=== PATIENT | female | born 1925 | race Caucasian/White ===

== ENCOUNTER 2016-12-14 00:39 | Emergency (ER) | payer MEDICARE, BC, OTHER ==
[~2016-12-14] VITALS: Ht 157.5 cm; Wt 54.0 kg
[~2016-12-14 00:39] MED LIST: AMLO10TA2 PO; ATOR1TAB19 PO; BENA20TA2 PO; CEPH2CAP PO; METF500T PO; MULTTAB4 PO; SPIRIVA INH; TORS20TA2 PO
[2016-12-14 02:31] LABS: BASO # 0.1 K/mm3 (0.0-0.2); BASO % 0.6 % (0.0-1.0); EOS # 0.2 K/mm3 (0.0-0.50); EOS % 1.9 % (0.0-3.0); LARGE UNSTAINED CELL # 0.1 K/mm3 (0.0-0.4); LYMPH # 1.2 K/mm3 (1.5-4.5); LYMPH % 10.6 % (24.0-44.0); MEAN CORPUSCULAR HEMOGLOBIN 31.2 pg (27.0-33.0); MEAN CORPUSCULAR HGB CONC 32.5 g/dl (32.0-36.5); MEAN CORPUSCULAR VOLUME 96.1 fl (80.0-96.0); MONO # 0.6 K/mm3 (0.0-0.8); MONO % 6.3 % (0.0-5.0); NEUTROPHILS # 8.1 K/mm3 (1.8-7.7); NEUTROPHILS % 79.7 % (36.0-66.0); PLATELET COUNT, AUTOMATED 177 k/mm3 (150-450); RED CELL DISTRIBUTION WIDTH 13.8 % (11.5-14.5); WHITE BLOOD COUNT 10.2 K/mm3 (4.0-10.0)
[2016-12-14 03:01] LABS: ABG BASE EXCESS -2.4 (-2.0-2.0); ABG HCO3 21.4 MEQ/L (22.0-26.0); ABG PARTIAL PRESSURE CO2 33.8 mmHg (35.0-45.0); ABG STANDARD HCO3 22.4 MEQ/L (22.0-26.0); ABG TOTAL CO2 22.4 MEQ/L (23.0-31.0); ABG pH (ARTERIAL) 7.419 UNITS (7.350-7.450)
[2016-12-14 03:04] LABS: CALCIUM LEVEL 8.4 MG/DL (8.8-10.2); CREATININE FOR GFR 1.45 MG/DL (0.55-1.02); GLOMERULAR FILTRATION RATE 36.3 (>32); POTASSIUM SERUM 3.9 MEQ/L (3.5-5.1)
[2016-12-14] MEDS ORDERED: HEPARIN DRIP 25,000 UNITS in APPROPRIATE DILUENT 1 EA IV SCH (03:29)
[2016-12-14] MEDS ORDERED: ASPIRIN 325 MG TAB PO ONE (03:30)
[2016-12-14] MEDS ORDERED: HEPARIN SOD (PORCINE) 5000 UNITS/ML VIAL IV ONE (03:30)
[2016-12-14 03:56] LABS: INR 1.1
[2016-12-14 05:00] VITALS: BP 122/57
--- NOTE | 2016-12-14 08:21 | REP ---
PA and lateral chest: Comparison is , 2012. Lung faria are clear. Cardiac size is mildly enlarged. The kyler, mediastinum, and bony thorax are unremarkable except osteoarthritis of the shoulders bilaterally. Prominent chest wall soft tissue superimposed lower lung zones. Impression: There are no acute cardiopulmonary findings Signed by Darrion Lin MD 12/14/2016 08:13 A
--- NOTE | 2016-12-14 16:06 | ECGEPIP ---
Stationary ECG Study [facility] - ED Test Date: 2016-12-14 Pat Name: MELISSA YODER Department: Room: - Gender: F Community Affairs Manager: rb : [id number] Requested By: ISMAEL GOMEZ Order Number: [id number] Reading MD: Zoran Baron Measurements Intervals [place] Rate: 107 P: 55 W[place]: 183 QRS: -47 QRSD: 97 T: 51 QT: 341 QTc: 456 Interpretive Statements SINUS TACHYCARDIA WITH FIRST DEGREE AV BLOCK POSSIBLE LEFT ATRIAL ENLARGEMENT PATTERN CONSISTENT WITH PULMONARY DISEASE LEFT ANTERIOR FASCICULAR BLOCK SEPTAL MYOCARDIAL INFARCTION, OF INDETERMINATE AGE NO PRIORS Electronically Signed On 12-14-2016 16:06:00 EDT by Zoran Baron
== END 2016-12-14 05:03 | disposition short-term general hospital (02) ==
LOC: EDBD 00:39 → M ED 00:39
DX: I21.4 Non-ST elevation (NSTEMI) myocardial infarction (principal); E11.9 Type 2 diabetes mellitus without complications; I11.0 Hypertensive heart disease with heart failure; J44.9 Chronic obstructive pulmonary disease, unspecified; I50.9 Heart failure, unspecified; E78.5 Hyperlipidemia, unspecified; Z79.899 Other long term (current) drug therapy

== ENCOUNTER → 2016-12-21 | Outpatient (REF) | payer MEDICARE, OTHER ==
[2016-12-21 18:34] LABS: CALCIUM LEVEL 8.9 MG/DL (8.8-10.2); CREATININE FOR GFR 1.46 MG/DL (0.55-1.02); GLOMERULAR FILTRATION RATE 35.9 (>32); POTASSIUM SERUM 4.1 MEQ/L (3.5-5.1)
[2016-12-21 19:32] LABS: MEAN CORPUSCULAR HEMOGLOBIN 31.5 pg (27.0-33.0); MEAN CORPUSCULAR VOLUME 95.5 fl (80.0-96.0); RED CELL DISTRIBUTION WIDTH 13.6 % (11.5-14.5); WHITE BLOOD COUNT 7.8 K/mm3 (4.0-10.0)
== END ==
LOC: M LAB REF 16:06
PROVIDERS: ATTEND Physician Assistant Medical
DX: I26.99 Other pulmonary embolism without acute cor pulmonale (principal)

== ENCOUNTER → 2017-06-10 | Outpatient (CLI) | payer MEDICARE, BC, OTHER | LOC: M RAD 13:29 | DX: L97.812 Non-pressure chronic ulcer of other part of right lower leg with fat layer exposed (principal); I82.811 Embolism and thrombosis of superficial veins of right lower extremity | CPT/HCPCS: 93971 ==

== ENCOUNTER 2017-07-14 12:03 | Inpatient (IN) | payer MEDICARE, BC, OTHER ==
[2017-07-14] MEDS: NS 1,000 ML IV ×2 (13:15→17:42)
[2017-07-14 13:24] LABS: BASO # 0.1 10^3/uL (0.0-0.2); BASO % 0.3 % (0.0-1.0); HEMATOCRIT 43.1 % (36.0-47.0); HEMOGLOBIN 13.8 g/dl (12.0-16.0); IMMATURE GRANULOCYTE % 0.5 % (0-3.0); LYMPH # 1.9 10^3/uL (1.5-4.5); LYMPH % 6.7 % (24.0-44.0); MEAN CORPUSCULAR HEMOGLOBIN 29.6 pg (27.0-33.0); MEAN CORPUSCULAR VOLUME 92.3 fl (80.0-96.0); MONO # 1.3 10^3/uL (0.0-0.8); MONO % 4.7 % (0.0-5.0); NEUTROPHILS # 24.4 10^3/uL (1.8-7.7); NEUTROPHILS % 87.8 % (36.0-66.0); PLATELET COUNT, AUTOMATED 317 10^3/uL (150-450); RED BLOOD COUNT 4.67 10^6/uL (4.00-5.40); RED CELL DISTRIBUTION WIDTH 16.1 % (11.5-14.5); WHITE BLOOD COUNT 27.8 10^3/uL (4.0-10.0)
[2017-07-14 13:28] LABS: ALBUMIN 3.8 GM/DL (3.2-5.2); ALBUMIN/GLOBULIN RATIO 1.03 (1.00-1.93); ALKALINE PHOSPHATASE 166 U/L (45-117); ALT/SGPT 99 U/L (12-78); ANION GAP 10 MEQ/L (8-16); AST/SGOT 201 U/L (7-37); BILIRUBIN,DIRECT 1.3 MG/DL (0.0-0.2); BILIRUBIN,TOTAL 1.8 MG/DL (0.2-1.0); BLOOD UREA NITROGEN 24 MG/DL (7-18); CALCIUM LEVEL 9.7 MG/DL (8.8-10.2); CARBON DIOXIDE LEVEL 25 MEQ/L (21-32); CHLORIDE LEVEL 105 MEQ/L (98-107); CREATININE FOR GFR 1.86 MG/DL (0.55-1.30); GLOMERULAR FILTRATION RATE 27.2 (>32); GLUCOSE, FASTING 281 MG/DL (70-100); POTASSIUM SERUM 3.8 MEQ/L (3.5-5.1); SODIUM LEVEL 140 MEQ/L (136-145); TOTAL PROTEIN 7.5 GM/DL (6.4-8.2)
[2017-07-14 13:33] LABS: INR 1.05; PROTHROMBIN TIME 13.8 SECONDS (12.4-14.5)
[2017-07-14 13:34] LABS: PARTIAL THROMBOPLASTIN TIME 22.1 SECONDS (26.8-37.9)
[2017-07-14] MEDS: ONDANSETRON 4MG/2ML VIAL (J2405) IV (13:45)
[2017-07-14] MEDS: PANTOPRAZOLE 40MG INJ (PROTONIX) (C9113) IV (13:46)
[2017-07-14] MEDS: MORPHINE 2 MG/ML 1ML SYRINGE (J2270) IV ×3 (13:48→16:31)
[2017-07-14 13:57] LABS: LIPASE 80220 U/L (73-393)
[2017-07-14] MEDS: PIPERACILLIN/TAZOBACTAM SOD 3.375 GM in APPROPRIATE DILUENT 1 EA IV (16:30)
[2017-07-14] MEDS ORDERED: ALBUTEROL SULFATE 2.5 MG/0.5 ML INH NEB SOLN INH (18:15)
[2017-07-14] MEDS: MORPHINE 4 MG/ML 1ML VIAL (J2270) IV (22:50)
[2017-07-14] MEDS: HEPARIN SOD (PORCINE) 5000 UNITS/ML VIAL SC (22:50)
[2017-07-15 02:31] LABS: BEDSIDE GLUCOSE 137 MG/DL (83-110)
[2017-07-15 05:45] LABS: HEMATOCRIT 42.2 % (36.0-47.0); HEMOGLOBIN 13.6 g/dl (12.0-16.0); MEAN CORPUSCULAR HEMOGLOBIN 30.2 pg (27.0-33.0); MEAN CORPUSCULAR HGB CONC 32.2 g/dl (32.0-36.5); MEAN CORPUSCULAR VOLUME 93.6 fl (80.0-96.0); PLATELET COUNT, AUTOMATED 267 10^3/uL (150-450); RED BLOOD COUNT 4.51 10^6/uL (4.00-5.40); RED CELL DISTRIBUTION WIDTH 16.4 % (11.5-14.5); WHITE BLOOD COUNT 14.5 10^3/uL (4.0-10.0)
[2017-07-15] MEDS: HumaLOG INSULIN (NovoLOG) PER UNIT SC ×4 (06:00→21:00)
[2017-07-15] MEDS: ONDANSETRON 4MG/2ML VIAL (J2405) IV (06:10)
[2017-07-15 06:20] LABS: ALBUMIN/GLOBULIN RATIO 0.73 (1.00-1.93); ALKALINE PHOSPHATASE 182 U/L (45-117); ALT/SGPT 357 U/L (12-78); ANION GAP 9 MEQ/L (8-16); AST/SGOT 447 U/L (7-37); BILIRUBIN,TOTAL 3.5 MG/DL (0.2-1.0); BLOOD UREA NITROGEN 31 MG/DL (7-18); CALCIUM LEVEL 8.8 MG/DL (8.8-10.2); CARBON DIOXIDE LEVEL 25 MEQ/L (21-32); CHLORIDE LEVEL 107 MEQ/L (98-107); CREATININE FOR GFR 2.29 MG/DL (0.55-1.30); GLOMERULAR FILTRATION RATE 21.4 (>32); GLUCOSE, FASTING 138 MG/DL (70-100); LIPASE 7552 U/L (73-393); MAGNESIUM LEVEL 2.4 MG/DL (1.8-2.4); POTASSIUM SERUM 4.3 MEQ/L (3.5-5.1); SODIUM LEVEL 141 MEQ/L (136-145); TOTAL PROTEIN 7.1 GM/DL (6.4-8.2)
[2017-07-15 06:25] LABS: BEDSIDE GLUCOSE 141 MG/DL (83-110)
[2017-07-15] MEDS: KCL 20MEQ IN D5/0.45NS 1000ML 1,000 ML IV ×2 (07:56→16:35)
[2017-07-15] MEDS: HEPARIN SOD (PORCINE) 5000 UNITS/ML VIAL SC (09:50)
[2017-07-15] MEDS: MEROPENEM INJ 1 GM in APPROPRIATE DILUENT 1 EA IV ×2 (09:51→22:26)
[2017-07-15 12:12] LABS: BEDSIDE GLUCOSE 232 MG/DL (83-110)
[2017-07-15] MEDS ORDERED: GLUCOSE 4 GM CHEW TABLET PO (16:15)
[2017-07-15] MEDS ORDERED: DEXTROSE 50% 50 ML SYRINGE IV (16:15)
[2017-07-15] MEDS ORDERED: GLUCAGON FOR INJ 1 MG VIAL (J1610) SC (16:15)
[2017-07-15 17:42] LABS: BEDSIDE GLUCOSE 170 MG/DL (83-110)
[2017-07-15] MEDS: amLODIPine 10 MG TAB PO (18:25)
[2017-07-15 18:45] LABS: KETONE, URINE AUTO RFX NEGATIVE (NEGATIVE); LEUKOCYTE ESTERASE UR AUTO RFX NEGATIVE (NEGATIVE); NITRITE, URINE AUTO RFX NEGATIVE (NEGATIVE); RBC, URINE AUTO RFX 1 /HPF (0-3); SPECIFIC GRAVITY UR AUTO RFX 1.016 (1.002-1.035); SQUAM EPITHELIAL CELL UR AURFX 1 /HPF (0-6); WBC, URINE AUTO RFX 2 /HPF (0-3)
[2017-07-15] MEDS ORDERED: HEPARIN SOD (PORCINE) 5000 UNITS/ML VIAL IV (18:45)
[2017-07-15 19:14] LABS: PARTIAL THROMBOPLASTIN TIME 27.7 SECONDS (26.8-37.9)
[2017-07-15 22:29] LABS: BEDSIDE GLUCOSE 148 MG/DL (83-110)
[2017-07-15] MEDS: HEPARIN DRIP 25,000 UNITS in APPROPRIATE DILUENT 1 EA IV (23:06)
[2017-07-16] MEDS: KCL 20MEQ IN D5/0.45NS 1000ML 1,000 ML IV ×4 (01:29→16:13)
[2017-07-16 05:08] LABS: HEMOGLOBIN 12.2 g/dl (12.0-16.0); MEAN CORPUSCULAR HEMOGLOBIN 29.3 pg (27.0-33.0); MEAN CORPUSCULAR HGB CONC 32.1 g/dl (32.0-36.5); MEAN CORPUSCULAR VOLUME 91.3 fl (80.0-96.0); PLATELET COUNT, AUTOMATED 218 10^3/uL (150-450); RED BLOOD COUNT 4.16 10^6/uL (4.00-5.40); RED CELL DISTRIBUTION WIDTH 16.3 % (11.5-14.5); WHITE BLOOD COUNT 24.3 10^3/uL (4.0-10.0)
[2017-07-16 05:26] LABS: PARTIAL THROMBOPLASTIN TIME 82.3 SECONDS (26.8-37.9)
[2017-07-16 05:39] LABS: ALBUMIN 2.4 GM/DL (3.2-5.2); ALBUMIN/GLOBULIN RATIO 0.62 (1.00-1.93); ALKALINE PHOSPHATASE 177 U/L (45-117); ALT/SGPT 232 U/L (12-78); ANION GAP 8 MEQ/L (8-16); AST/SGOT 154 U/L (7-37); BILIRUBIN,TOTAL 1.6 MG/DL (0.2-1.0); BLOOD UREA NITROGEN 25 MG/DL (7-18); CALCIUM LEVEL 8.4 MG/DL (8.8-10.2); CARBON DIOXIDE LEVEL 25 MEQ/L (21-32); CHLORIDE LEVEL 104 MEQ/L (98-107); CREATININE FOR GFR 1.64 MG/DL (0.55-1.30); GLOMERULAR FILTRATION RATE 31.4 (>32); GLUCOSE, FASTING 192 MG/DL (70-100); LIPASE 1863 U/L (73-393); POTASSIUM SERUM 4.4 MEQ/L (3.5-5.1); SODIUM LEVEL 137 MEQ/L (136-145); TOTAL PROTEIN 6.3 GM/DL (6.4-8.2)
[2017-07-16] MEDS: ONDANSETRON 4MG/2ML VIAL (J2405) IV ×2 (08:32→17:06)
[2017-07-16] MEDS: amLODIPine 10 MG TAB PO (08:32)
[2017-07-16] MEDS: HumaLOG INSULIN (NovoLOG) PER UNIT SC ×4 (08:32→22:15)
[2017-07-16] MEDS: MEROPENEM INJ 1 GM in APPROPRIATE DILUENT 1 EA IV ×2 (08:33→22:00)
[2017-07-16 11:23] LABS: BEDSIDE GLUCOSE 205 MG/DL (83-110)
[2017-07-16 12:17] LABS: PARTIAL THROMBOPLASTIN TIME 95.5 SECONDS (26.8-37.9)
[2017-07-16 17:19] LABS: BEDSIDE GLUCOSE 142 MG/DL (83-110)
[2017-07-16] MEDS: MORPHINE 4 MG/ML 1ML VIAL (J2270) IV (17:29)
[2017-07-16 22:30] LABS: BEDSIDE GLUCOSE 146 MG/DL (83-110)
[2017-07-16 23:51] LABS: HEMATOCRIT 36.5 % (36.0-47.0); HEMOGLOBIN 11.8 g/dl (12.0-16.0); MEAN CORPUSCULAR HEMOGLOBIN 29.6 pg (27.0-33.0); MEAN CORPUSCULAR HGB CONC 32.3 g/dl (32.0-36.5); MEAN CORPUSCULAR VOLUME 91.7 fl (80.0-96.0); PLATELET COUNT, AUTOMATED 182 10^3/uL (150-450); RED BLOOD COUNT 3.98 10^6/uL (4.00-5.40); RED CELL DISTRIBUTION WIDTH 15.9 % (11.5-14.5); WHITE BLOOD COUNT 22.9 10^3/uL (4.0-10.0)
[2017-07-17 00:07] LABS: ANION GAP 7 MEQ/L (8-16); BLOOD UREA NITROGEN 20 MG/DL (7-18); CALCIUM LEVEL 8.6 MG/DL (8.8-10.2); CARBON DIOXIDE LEVEL 24 MEQ/L (21-32); CHLORIDE LEVEL 104 MEQ/L (98-107); CREATININE FOR GFR 1.16 MG/DL (0.55-1.30); GLOMERULAR FILTRATION RATE 46.8 (>32); GLUCOSE, FASTING 151 MG/DL (70-100); LIPASE 483 U/L (73-393); POTASSIUM SERUM 4.4 MEQ/L (3.5-5.1); SODIUM LEVEL 135 MEQ/L (136-145)
[2017-07-17] MEDS: KCL 20MEQ IN D5/0.45NS 1000ML 1,000 ML IV ×3 (00:07→12:29)
[2017-07-17] MEDS: ACETAMINOPHEN TAB 650MG DOSE (2X325MG) PO ×2 (00:08→20:35)
[2017-07-17] MEDS: HEPARIN DRIP 25,000 UNITS in APPROPRIATE DILUENT 1 EA IV ×3 (00:52→23:03)
[2017-07-17] MEDS: ONDANSETRON 4MG/2ML VIAL (J2405) IV ×2 (00:52→16:55)
[2017-07-17 00:56] LABS: ALBUMIN 2.2 GM/DL (3.2-5.2); ALBUMIN/GLOBULIN RATIO 0.65 (1.00-1.93); ALKALINE PHOSPHATASE 172 U/L (45-117); ALT/SGPT 158 U/L (12-78); AST/SGOT 67 U/L (7-37); BILIRUBIN,DIRECT 0.6 MG/DL (0.0-0.2); BILIRUBIN,TOTAL 1.1 MG/DL (0.2-1.0); TOTAL PROTEIN 5.6 GM/DL (6.4-8.2)
[2017-07-17 01:14] LABS: LACTIC ACID SEPSIS PROTOCOL 0.9 MMOL/L (0.4-2.0)
[2017-07-17 02:19] LABS: APPEARANCE, URINE CLEAR (CLEAR); BACTERIA, URINE AUTO 1+ (NEGATIVE); BILIRUBIN, URINE AUTO NEGATIVE (NEGATIVE); BLOOD, URINE BLOOD 1+ (NEGATIVE); COLOR, URINE YELLOW (YELLOW); GLUCOSE, URINE (UA) AUTO 1+ mg/dL (NEGATIVE); KETONE, URINE AUTO NEGATIVE (NEGATIVE); LEUKOCYTE ESTERASE, URINE AUTO NEGATIVE (NEGATIVE); NITRITE, URINE AUTO NEGATIVE (NEGATIVE); PROTEIN, URINE AUTO NEGATIVE (NEGATIVE); RBC, URINE AUTO 1 /HPF (0-3); SPECIFIC GRAVITY URINE AUTO 1.008 (1.002-1.035); SQUAMOUS EPITHELIAL CELL UR AU 2 /HPF (0-6); UROBILINOGEN, URINE AUTO 0.2 mg/dL (0.0-2.0); WBC, URINE AUTO 1 /HPF (0-3)
[2017-07-17 04:57] LABS: HEMATOCRIT 35.8 % (36.0-47.0); HEMOGLOBIN 11.6 g/dl (12.0-16.0); MEAN CORPUSCULAR HEMOGLOBIN 29.7 pg (27.0-33.0); MEAN CORPUSCULAR HGB CONC 32.4 g/dl (32.0-36.5); MEAN CORPUSCULAR VOLUME 91.6 fl (80.0-96.0); PLATELET COUNT, AUTOMATED 198 10^3/uL (150-450); RED BLOOD COUNT 3.91 10^6/uL (4.00-5.40); RED CELL DISTRIBUTION WIDTH 16.2 % (11.5-14.5); WHITE BLOOD COUNT 22.9 10^3/uL (4.0-10.0)
[2017-07-17 05:15] LABS: ALBUMIN 2.1 GM/DL (3.2-5.2); ALBUMIN/GLOBULIN RATIO 0.51 (1.00-1.93); ALKALINE PHOSPHATASE 167 U/L (45-117); ALT/SGPT 135 U/L (12-78); ANION GAP 8 MEQ/L (8-16); AST/SGOT 50 U/L (7-37); BILIRUBIN,TOTAL 0.9 MG/DL (0.2-1.0); BLOOD UREA NITROGEN 18 MG/DL (7-18); CALCIUM LEVEL 8.6 MG/DL (8.8-10.2); CARBON DIOXIDE LEVEL 21 MEQ/L (21-32); CHLORIDE LEVEL 107 MEQ/L (98-107); CREATININE FOR GFR 1.17 MG/DL (0.55-1.30); GLOMERULAR FILTRATION RATE 46.4 (>32); GLUCOSE, FASTING 170 MG/DL (70-100); LIPASE 386 U/L (73-393); MAGNESIUM LEVEL 1.9 MG/DL (1.8-2.4); POTASSIUM SERUM 4.2 MEQ/L (3.5-5.1); SODIUM LEVEL 136 MEQ/L (136-145); TOTAL PROTEIN 6.2 GM/DL (6.4-8.2)
[2017-07-17 07:02] LABS: PARTIAL THROMBOPLASTIN TIME 131.4 SECONDS (26.8-37.9)
[2017-07-17] MEDS: DIAPER RELIEF PASTE (DESITIN) 60GM TOP (08:04)
[2017-07-17] MEDS: HumaLOG INSULIN (NovoLOG) PER UNIT SC ×4 (08:04→20:36)
[2017-07-17] MEDS: MEROPENEM INJ 1 GM in APPROPRIATE DILUENT 1 EA IV ×2 (08:05→20:35)
[2017-07-17] MEDS: amLODIPine 10 MG TAB PO (08:06)
[2017-07-17 11:20] LABS: PARTIAL THROMBOPLASTIN TIME 71.8 SECONDS (26.8-37.9)
[2017-07-17 11:39] LABS: BEDSIDE GLUCOSE 143 MG/DL (83-110)
[2017-07-17 17:18] LABS: BEDSIDE GLUCOSE 140 MG/DL (83-110)
[2017-07-17 17:31] LABS: PARTIAL THROMBOPLASTIN TIME 64.4 SECONDS (26.8-37.9)
[2017-07-17 20:16] LABS: BEDSIDE GLUCOSE 134 MG/DL (83-110)
[2017-07-17 23:15] LABS: PARTIAL THROMBOPLASTIN TIME 65.9 SECONDS (26.8-37.9)
[2017-07-18] MEDS: KCL 20MEQ IN D5/0.45NS 1000ML 1,000 ML IV ×3 (04:30→23:18)
[2017-07-18 05:05] LABS: HEMATOCRIT 32.9 % (36.0-47.0); HEMOGLOBIN 10.8 g/dl (12.0-16.0); MEAN CORPUSCULAR HEMOGLOBIN 29.9 pg (27.0-33.0); MEAN CORPUSCULAR HGB CONC 32.8 g/dl (32.0-36.5); MEAN CORPUSCULAR VOLUME 91.1 fl (80.0-96.0); PLATELET COUNT, AUTOMATED 197 10^3/uL (150-450); RED BLOOD COUNT 3.61 10^6/uL (4.00-5.40); RED CELL DISTRIBUTION WIDTH 15.7 % (11.5-14.5); WHITE BLOOD COUNT 18.2 10^3/uL (4.0-10.0)
[2017-07-18 05:31] LABS: ALBUMIN 1.9 GM/DL (3.2-5.2); ALBUMIN/GLOBULIN RATIO 0.48 (1.00-1.93); ALKALINE PHOSPHATASE 155 U/L (45-117); ALT/SGPT 79 U/L (12-78); ANION GAP 7 MEQ/L (8-16); AST/SGOT 21 U/L (7-37); BILIRUBIN,TOTAL 0.6 MG/DL (0.2-1.0); BLOOD UREA NITROGEN 13 MG/DL (7-18); CALCIUM LEVEL 8.5 MG/DL (8.8-10.2); CARBON DIOXIDE LEVEL 23 MEQ/L (21-32); CHLORIDE LEVEL 107 MEQ/L (98-107); CREATININE FOR GFR 0.91 MG/DL (0.55-1.30); GLOMERULAR FILTRATION RATE > 60.0 (>32); GLUCOSE, FASTING 139 MG/DL (70-100); LIPASE 177 U/L (73-393); MAGNESIUM LEVEL 1.9 MG/DL (1.8-2.4); SODIUM LEVEL 137 MEQ/L (136-145); TOTAL PROTEIN 5.9 GM/DL (6.4-8.2)
[2017-07-18] MEDS: HumaLOG INSULIN (NovoLOG) PER UNIT SC ×4 (07:30→20:40)
[2017-07-18] MEDS: ONDANSETRON 4MG/2ML VIAL (J2405) IV ×2 (08:00→17:22)
[2017-07-18] MEDS: MEROPENEM INJ 1 GM in APPROPRIATE DILUENT 1 EA IV ×2 (08:59→20:41)
[2017-07-18] MEDS: amLODIPine 10 MG TAB PO (09:00)
[2017-07-18] MEDS ORDERED: ENOXAPARIN 80 MG/0.8 ML SYRINGE (J1650) SC (09:15)
[2017-07-18 12:29] LABS: BEDSIDE GLUCOSE 139 MG/DL (83-110)
[2017-07-18] MEDS: ENOXAPARIN 80 MG/0.8 ML SYRINGE (J1650) SC ×2 (12:36→23:18)
[2017-07-18 17:19] LABS: BEDSIDE GLUCOSE 148 MG/DL (83-110)
[2017-07-18 20:14] LABS: BEDSIDE GLUCOSE 133 MG/DL (83-110)
[2017-07-19] MEDS: ONDANSETRON 4MG/2ML VIAL (J2405) IV (01:45)
[2017-07-19 05:06] LABS: HEMATOCRIT 33.6 % (36.0-47.0); HEMOGLOBIN 10.9 g/dl (12.0-16.0); MEAN CORPUSCULAR HEMOGLOBIN 29.2 pg (27.0-33.0); MEAN CORPUSCULAR HGB CONC 32.4 g/dl (32.0-36.5); MEAN CORPUSCULAR VOLUME 90.1 fl (80.0-96.0); PLATELET COUNT, AUTOMATED 233 10^3/uL (150-450); RED BLOOD COUNT 3.73 10^6/uL (4.00-5.40); RED CELL DISTRIBUTION WIDTH 15.6 % (11.5-14.5); WHITE BLOOD COUNT 16.5 10^3/uL (4.0-10.0)
[2017-07-19 05:23] LABS: ALBUMIN 1.7 GM/DL (3.2-5.2); ALBUMIN/GLOBULIN RATIO 0.44 (1.00-1.93); ALKALINE PHOSPHATASE 147 U/L (45-117); ALT/SGPT 51 U/L (12-78); ANION GAP 9 MEQ/L (8-16); AST/SGOT 17 U/L (7-37); BILIRUBIN,TOTAL 0.5 MG/DL (0.2-1.0); BLOOD UREA NITROGEN 11 MG/DL (7-18); CALCIUM LEVEL 8.5 MG/DL (8.8-10.2); CARBON DIOXIDE LEVEL 22 MEQ/L (21-32); CHLORIDE LEVEL 106 MEQ/L (98-107); CREATININE FOR GFR 0.84 MG/DL (0.55-1.30); GLOMERULAR FILTRATION RATE > 60.0 (>32); GLUCOSE, FASTING 139 MG/DL (70-100); LIPASE 151 U/L (73-393); MAGNESIUM LEVEL 1.6 MG/DL (1.8-2.4); POTASSIUM SERUM 3.9 MEQ/L (3.5-5.1); SODIUM LEVEL 137 MEQ/L (136-145); TOTAL PROTEIN 5.6 GM/DL (6.4-8.2)
[2017-07-19] MEDS: HumaLOG INSULIN (NovoLOG) PER UNIT SC ×4 (08:37→21:00)
[2017-07-19] MEDS: KCL 20MEQ IN D5/0.45NS 1000ML 1,000 ML IV ×2 (08:37→20:57)
[2017-07-19] MEDS: MAG SULF 1GM/100ML (MAG RUN) 1 GM in APPROPRIATE DILUENT 1 EA IV (08:38)
[2017-07-19] MEDS: DIAPER RELIEF PASTE (DESITIN) 60GM TOP (08:38)
[2017-07-19] MEDS: amLODIPine 10 MG TAB PO (08:38)
[2017-07-19] MEDS: MEROPENEM INJ 1 GM in APPROPRIATE DILUENT 1 EA IV ×2 (09:59→20:57)
[2017-07-19 11:23] LABS: BEDSIDE GLUCOSE 128 MG/DL (83-110)
[2017-07-19] MEDS: ENOXAPARIN 80 MG/0.8 ML SYRINGE (J1650) SC (11:35)
[2017-07-19 16:36] LABS: BEDSIDE GLUCOSE 126 MG/DL (83-110)
[2017-07-19 21:20] LABS: BEDSIDE GLUCOSE 187 MG/DL (83-110)
[2017-07-20] MEDS: ENOXAPARIN 80 MG/0.8 ML SYRINGE (J1650) SC ×3 (00:41→23:57)
[2017-07-20 06:46] LABS: HEMATOCRIT 33.6 % (36.0-47.0); MEAN CORPUSCULAR HEMOGLOBIN 30.2 pg (27.0-33.0); MEAN CORPUSCULAR HGB CONC 32.7 g/dl (32.0-36.5); MEAN CORPUSCULAR VOLUME 92.3 fl (80.0-96.0); PLATELET COUNT, AUTOMATED 243 10^3/uL (150-450); RED BLOOD COUNT 3.64 10^6/uL (4.00-5.40); RED CELL DISTRIBUTION WIDTH 15.7 % (11.5-14.5); WHITE BLOOD COUNT 14.1 10^3/uL (4.0-10.0)
[2017-07-20 07:10] LABS: ALBUMIN 1.7 GM/DL (3.2-5.2); ALBUMIN/GLOBULIN RATIO 0.41 (1.00-1.93); ALKALINE PHOSPHATASE 149 U/L (45-117); ALT/SGPT 37 U/L (12-78); ANION GAP 7 MEQ/L (8-16); AST/SGOT 32 U/L (7-37); BILIRUBIN,TOTAL 0.4 MG/DL (0.2-1.0); BLOOD UREA NITROGEN 10 MG/DL (7-18); CALCIUM LEVEL 8.7 MG/DL (8.8-10.2); CARBON DIOXIDE LEVEL 22 MEQ/L (21-32); CHLORIDE LEVEL 110 MEQ/L (98-107); CREATININE FOR GFR 0.83 MG/DL (0.55-1.30); GLOMERULAR FILTRATION RATE > 60.0 (>32); GLUCOSE, FASTING 141 MG/DL (70-100); LIPASE 203 U/L (73-393); MAGNESIUM LEVEL 1.9 MG/DL (1.8-2.4); POTASSIUM SERUM 4.7 MEQ/L (3.5-5.1); SODIUM LEVEL 139 MEQ/L (136-145); TOTAL PROTEIN 5.8 GM/DL (6.4-8.2)
[2017-07-20] MEDS: HumaLOG INSULIN (NovoLOG) PER UNIT SC ×4 (08:19→21:00)
[2017-07-20] MEDS: amLODIPine 10 MG TAB PO (08:20)
[2017-07-20] MEDS: MEROPENEM INJ 1 GM in APPROPRIATE DILUENT 1 EA IV ×2 (08:20→22:09)
[2017-07-20] MEDS: FUROSEMIDE 40 MG/4 ML VIAL (J1940) IV (11:15)
[2017-07-20 12:00] LABS: BEDSIDE GLUCOSE 102 MG/DL (83-110)
[2017-07-20 21:01] LABS: BEDSIDE GLUCOSE 89 MG/DL (83-110)
[2017-07-20 21:01] LABS: BEDSIDE GLUCOSE 119 MG/DL (83-110)
[2017-07-21 06:52] LABS: HEMATOCRIT 33.5 % (36.0-47.0); HEMOGLOBIN 10.7 g/dl (12.0-16.0); MEAN CORPUSCULAR HEMOGLOBIN 29.8 pg (27.0-33.0); MEAN CORPUSCULAR HGB CONC 31.9 g/dl (32.0-36.5); MEAN CORPUSCULAR VOLUME 93.3 fl (80.0-96.0); PLATELET COUNT, AUTOMATED 251 10^3/uL (150-450); RED BLOOD COUNT 3.59 10^6/uL (4.00-5.40); RED CELL DISTRIBUTION WIDTH 15.7 % (11.5-14.5); WHITE BLOOD COUNT 12.4 10^3/uL (4.0-10.0)
[2017-07-21 07:14] LABS: ALBUMIN/GLOBULIN RATIO 0.56 (1.00-1.93); ALKALINE PHOSPHATASE 161 U/L (45-117); ALT/SGPT 32 U/L (12-78); ANION GAP 8 MEQ/L (8-16); AST/SGOT 21 U/L (7-37); BILIRUBIN,TOTAL 0.3 MG/DL (0.2-1.0); BLOOD UREA NITROGEN 12 MG/DL (7-18); CALCIUM LEVEL 8.4 MG/DL (8.8-10.2); CARBON DIOXIDE LEVEL 24 MEQ/L (21-32); CHLORIDE LEVEL 108 MEQ/L (98-107); GLOMERULAR FILTRATION RATE > 60.0 (>32); GLUCOSE, FASTING 116 MG/DL (70-100); LIPASE 325 U/L (73-393); MAGNESIUM LEVEL 1.7 MG/DL (1.8-2.4); SODIUM LEVEL 140 MEQ/L (136-145); TOTAL PROTEIN 5.6 GM/DL (6.4-8.2)
[2017-07-21] MEDS: HumaLOG INSULIN (NovoLOG) PER UNIT SC ×2 (08:18→12:08)
[2017-07-21] MEDS: DIAPER RELIEF PASTE (DESITIN) 60GM TOP (09:00)
[2017-07-21] MEDS: MAG SULF 1GM/100ML (MAG RUN) 1 GM in APPROPRIATE DILUENT 1 EA IV (09:47)
[2017-07-21] MEDS: amLODIPine 10 MG TAB PO (09:48)
[2017-07-21] MEDS: MEROPENEM INJ 1 GM in APPROPRIATE DILUENT 1 EA IV (11:21)
[2017-07-21 11:59] LABS: BEDSIDE GLUCOSE 124 MG/DL (83-110)
[2017-07-21] MEDS: ENOXAPARIN 80 MG/0.8 ML SYRINGE (J1650) SC (12:07)
== END 2017-07-21 13:50 | disposition home health service (06) | DRG 444 ==
LOC: M MS5PR 07-19 17:03 → M PCU 07-15 01:58 → M ED 12:03 → M ED INP 17:42
DX: K80.20 Calculus of gallbladder without cholecystitis without obstruction (principal); K85.10 Biliary acute pancreatitis without necrosis or infection; N17.9 Acute kidney failure, unspecified; E11.9 Type 2 diabetes mellitus without complications; I10 Essential (primary) hypertension; E78.5 Hyperlipidemia, unspecified; J44.9 Chronic obstructive pulmonary disease, unspecified; Z79.84 Long term (current) use of oral hypoglycemic drugs; Z79.01 Long term (current) use of anticoagulants; Z79.899 Other long term (current) drug therapy; Z87.891 Personal history of nicotine dependence; Z86.718 Personal history of other venous thrombosis and embolism; Z86.711 Personal history of pulmonary embolism

== ENCOUNTER → 2017-07-29 | Outpatient (REF) | payer MEDICARE, OTHER ==
[2017-07-29 10:18] LABS: ALBUMIN 2.8 GM/DL (3.2-5.2); ALBUMIN/GLOBULIN RATIO 0.74 (1.00-1.93); ALKALINE PHOSPHATASE 118 U/L (45-117); ALT/SGPT 14 U/L (12-78); ANION GAP 6 MEQ/L (8-16); AST/SGOT 12 U/L (7-37); BILIRUBIN,TOTAL 0.2 MG/DL (0.2-1.0); BLOOD UREA NITROGEN 8 MG/DL (7-18); CALCIUM LEVEL 8.9 MG/DL (8.8-10.2); CARBON DIOXIDE LEVEL 26 MEQ/L (21-32); CHLORIDE LEVEL 111 MEQ/L (98-107); CHOLESTEROL LEVEL 159 MG/DL (<200); CHOLESTEROL RISK RATIO 3.878 (<5); CREATININE FOR GFR 0.92 MG/DL (0.55-1.30); GLOMERULAR FILTRATION RATE > 60.0 (>32); GLUCOSE, FASTING 125 MG/DL (70-100); HDL CHOLESTEROL 41 MG/DL (>40); LDL CHOLESTEROL 93.6 MG/DL (<100); NON-HDL-C 118 MG/DL; POTASSIUM SERUM 3.6 MEQ/L (3.5-5.1); SODIUM LEVEL 143 MEQ/L (136-145); TOTAL PROTEIN 6.6 GM/DL (6.4-8.2); TRIGLYCERIDES LEVEL 122 MG/DL (<150)
[2017-07-29 10:29] LABS: ESTIMATED AVERAGE GLUCOSE 128 MG/DL (60-110); HEMOGLOBIN A1c 6.1 %
== END ==
LOC: M LAB REF 09:30
DX: E11.9 Type 2 diabetes mellitus without complications (principal)
CPT/HCPCS: 80053

== ENCOUNTER 2017-10-20 09:19 | Inpatient (IN) | payer MEDICARE, BC, OTHER ==
[2017-10-20] MEDS: NS 500 ML IV (10:45)
[2017-10-20 10:47] LABS: BASO # 0.1 10^3/uL (0.0-0.2); BASO % 0.5 % (0.0-1.0); EOS # 0.4 10^3/uL (0.0-0.50); EOS % 2.9 % (0.0-3.0); HEMATOCRIT 26.6 % (36.0-47.0); HEMOGLOBIN 8.2 g/dl (12.0-15.5); IMMATURE GRANULOCYTE # 0.1 10^3/uL (0-0); IMMATURE GRANULOCYTE % 0.6 % (0-3.0); LYMPH # 1.8 10^3/uL (1.5-4.5); LYMPH % 13.1 % (24.0-44.0); MEAN CORPUSCULAR HEMOGLOBIN 29.1 pg (27.0-33.0); MEAN CORPUSCULAR HGB CONC 30.8 g/dl (32.0-36.5); MEAN CORPUSCULAR VOLUME 94.3 fl (80.0-96.0); MONO # 1.2 10^3/uL (0.0-0.8); MONO % 9.1 % (0.0-5.0); NEUTROPHILS # 10.1 10^3/uL (1.8-7.7); NEUTROPHILS % 73.8 % (36.0-66.0); PLATELET COUNT, AUTOMATED 356 10^3/uL (150-450); RED BLOOD COUNT 2.82 10^6/uL (4.00-5.40); RED CELL DISTRIBUTION WIDTH 15.7 % (11.5-14.5); WHITE BLOOD COUNT 13.7 10^3/uL (4.0-10.0)
[2017-10-20 11:04] LABS: PLATELET ESTIMATE NORMAL (NORMAL)
[2017-10-20 11:05] LABS: DIFF SLIDE NUMBER 192
[2017-10-20 11:11] LABS: ANION GAP 10 MEQ/L (8-16); BLOOD UREA NITROGEN 57 MG/DL (7-18); CALCIUM LEVEL 9.3 MG/DL (8.8-10.2); CARBON DIOXIDE LEVEL 29 MEQ/L (21-32); CHLORIDE LEVEL 101 MEQ/L (98-107); CREATININE FOR GFR 2.79 MG/DL (0.55-1.30); GLUCOSE, FASTING 132 MG/DL (70-100); SODIUM LEVEL 140 MEQ/L (136-145)
[2017-10-20 11:14] LABS: ALBUMIN 2.9 GM/DL (3.2-5.2); ALBUMIN/GLOBULIN RATIO 0.69 (1.00-1.93); ALKALINE PHOSPHATASE 93 U/L (45-117); ALT/SGPT 13 U/L (12-78); AST/SGOT 10 U/L (7-37); BILIRUBIN,DIRECT 0.1 MG/DL (0.0-0.2); BILIRUBIN,TOTAL 0.3 MG/DL (0.2-1.0); LIPASE 5769 U/L (73-393); TOTAL PROTEIN 7.1 GM/DL (6.4-8.2)
[2017-10-20] MEDS ORDERED: HEPARIN SOD (PORCINE) 5000 UNITS/ML VIAL SC (14:00)
[2017-10-20] MEDS ORDERED: ONDANSETRON 4MG/2ML VIAL (J2405) IV (14:00)
[2017-10-20] MEDS ORDERED: MORPHINE 4 MG/ML 1ML VIAL/SYRINGE (J2270) IV (14:00)
[2017-10-20] MEDS: LR 1,000 ML IV ×3 (14:00→21:27)
[2017-10-20 14:10] LABS: RETICULOCYTE # 47.5 10^9/L (17-77); RETICULOCYTE % 1.7 % (0.5-1.5)
[2017-10-20 14:13] LABS: FERRITIN 372 NG/ML (8-252); IRON (FE) 34 UG/DL (50-170); PERCENT SATURATION 18.3 % (13.2-45.0); TOTAL IRON BINDING CAPACITY 186 UG/DL (250-450)
[2017-10-20] MEDS ORDERED: GLUCOSE 4 GM CHEW TABLET PO (14:15)
[2017-10-20] MEDS ORDERED: DEXTROSE 50% 50 ML SYRINGE IV (14:15)
[2017-10-20] MEDS ORDERED: GLUCAGON FOR INJ 1 MG VIAL (J1610) SC (14:15)
[2017-10-20 14:18] LABS: VITAMIN B12 LEVEL 242 PG/ML (247-911)
[2017-10-20 14:19] LABS: FOLATE 8.3 NG/ML (>5.4)
[2017-10-20 17:00] LABS: BEDSIDE GLUCOSE 134 MG/DL (83-110)
[2017-10-20] MEDS: MEROPENEM INJ 1 GM in APPROPRIATE DILUENT 1 EA IV (18:03)
[2017-10-20] MEDS: CYANOCOBALAMIN 1,000 MCG/ML VIAL (J3420) IM (18:03)
[2017-10-20] MEDS: FERROUS SULFATE 325MG TAB PO ×2 (18:03→18:04)
[2017-10-20] MEDS: HumaLOG INSULIN (NovoLOG) PER UNIT SC ×2 (18:04→21:00)
[2017-10-20 21:21] LABS: BEDSIDE GLUCOSE 116 MG/DL (83-110)
[2017-10-20] MEDS: RIVAROXABAN 15 MG TAB (XARELTO) PO (21:27)
[2017-10-20] MEDS: ATORVASTATIN 10 MG TAB PO (21:27)
[2017-10-21] MEDS: LR 1,000 ML IV ×2 (02:42→08:20)
[2017-10-21] MEDS: MEROPENEM INJ 1 GM in APPROPRIATE DILUENT 1 EA IV (04:09)
[2017-10-21 04:55] LABS: KETONE, URINE AUTO RFX NEGATIVE (NEGATIVE); LEUKOCYTE ESTERASE UR AUTO RFX NEGATIVE (NEGATIVE); NITRITE, URINE AUTO RFX NEGATIVE (NEGATIVE); RBC, URINE AUTO RFX 0 /HPF (0-3); SPECIFIC GRAVITY UR AUTO RFX 1.003 (1.002-1.035); SQUAM EPITHELIAL CELL UR AURFX 0 /HPF (0-6); WBC, URINE AUTO RFX 0 /HPF (0-3)
[2017-10-21 06:41] LABS: BASO # 0.1 10^3/uL (0.0-0.2); BASO % 0.5 % (0.0-1.0); EOS # 0.7 10^3/uL (0.0-0.50); EOS % 6.2 % (0.0-3.0); HEMATOCRIT 22.6 % (36.0-47.0); HEMOGLOBIN 7.2 g/dl (12.0-15.5); IMMATURE GRANULOCYTE % 0.5 % (0-3.0); LYMPH # 2.2 10^3/uL (1.5-4.5); LYMPH % 19.6 % (24.0-44.0); MEAN CORPUSCULAR HEMOGLOBIN 29.8 pg (27.0-33.0); MEAN CORPUSCULAR HGB CONC 31.9 g/dl (32.0-36.5); MEAN CORPUSCULAR VOLUME 93.4 fl (80.0-96.0); MONO # 1.2 10^3/uL (0.0-0.8); MONO % 10.4 % (0.0-5.0); NEUTROPHILS % 62.8 % (36.0-66.0); PLATELET COUNT, AUTOMATED 305 10^3/uL (150-450); RED BLOOD COUNT 2.42 10^6/uL (4.00-5.40); RED CELL DISTRIBUTION WIDTH 15.5 % (11.5-14.5); WHITE BLOOD COUNT 11.1 10^3/uL (4.0-10.0)
[2017-10-21 06:59] LABS: ALBUMIN 2.3 GM/DL (3.2-5.2); ALBUMIN/GLOBULIN RATIO 0.55 (1.00-1.93); ALKALINE PHOSPHATASE 78 U/L (45-117); ALT/SGPT 9 U/L (12-78); ANION GAP 8 MEQ/L (8-16); AST/SGOT 10 U/L (7-37); BILIRUBIN,TOTAL 0.2 MG/DL (0.2-1.0); BLOOD UREA NITROGEN 44 MG/DL (7-18); CALCIUM LEVEL 8.4 MG/DL (8.8-10.2); CARBON DIOXIDE LEVEL 29 MEQ/L (21-32); CHLORIDE LEVEL 109 MEQ/L (98-107); GLOMERULAR FILTRATION RATE 23.6 (>32); GLUCOSE, FASTING 110 MG/DL (70-100); LIPASE 652 U/L (73-393); POTASSIUM SERUM 3.7 MEQ/L (3.5-5.1); SODIUM LEVEL 146 MEQ/L (136-145); TOTAL PROTEIN 6.5 GM/DL (6.4-8.2)
[2017-10-21] MEDS: HumaLOG INSULIN (NovoLOG) PER UNIT SC ×2 (07:30→11:42)
[2017-10-21] MEDS: amLODIPine 10 MG TAB PO (08:20)
[2017-10-21] MEDS: FERROUS SULFATE 325MG TAB PO (08:20)
[2017-10-21] MEDS: CYANOCOBALAMIN 1,000 MCG/ML VIAL (J3420) IM (11:06)
[2017-10-21 11:33] LABS: BEDSIDE GLUCOSE 102 MG/DL (83-110)
== END 2017-10-21 14:30 | disposition home health service (06) | DRG 682 ==
LOC: M ED 09:19 → M ED INP 13:48 → M MSPAV 15:50
DX: N17.9 Acute kidney failure, unspecified (principal); K85.10 Biliary acute pancreatitis without necrosis or infection; K86.3 Pseudocyst of pancreas; S81.802D Unspecified open wound, left lower leg, subsequent encounter; S81.801D Unspecified open wound, right lower leg, subsequent encounter; E11.9 Type 2 diabetes mellitus without complications; D50.9 Iron deficiency anemia, unspecified; J44.9 Chronic obstructive pulmonary disease, unspecified; R63.4 Abnormal weight loss; I10 Essential (primary) hypertension; Z86.718 Personal history of other venous thrombosis and embolism; Z86.711 Personal history of pulmonary embolism; W18.30XD Fall on same level, unspecified, subsequent encounter; Y92.009 Unspecified place in unspecified non-institutional (private) residence as the place of occurrence of the external cause; Z79.84 Long term (current) use of oral hypoglycemic drugs; Z79.01 Long term (current) use of anticoagulants; Z79.899 Other long term (current) drug therapy; Z87.891 Personal history of nicotine dependence

== ENCOUNTER → 2017-10-31 | Outpatient (REF) | payer MEDICARE, BC, OTHER ==
[2017-10-31 15:39] LABS: BASO # 0.1 10^3/uL (0.0-0.2); BASO % 0.6 % (0.0-1.0); EOS # 0.4 10^3/uL (0.0-0.50); EOS % 3.2 % (0.0-3.0); HEMATOCRIT 27.9 % (36.0-47.0); HEMOGLOBIN 8.5 g/dl (12.0-15.5); IMMATURE GRANULOCYTE % 0.6 % (0-3.0); LYMPH # 3.3 10^3/uL (1.5-4.5); LYMPH % 27.2 % (24.0-44.0); MEAN CORPUSCULAR HEMOGLOBIN 29.7 pg (27.0-33.0); MEAN CORPUSCULAR HGB CONC 30.5 g/dl (32.0-36.5); MEAN CORPUSCULAR VOLUME 97.6 fl (80.0-96.0); MONO % 8.1 % (0.0-5.0); NEUTROPHILS # 7.4 10^3/uL (1.8-7.7); NEUTROPHILS % 60.3 % (36.0-66.0); PLATELET COUNT, AUTOMATED 499 10^3/uL (150-450); RED BLOOD COUNT 2.86 10^6/uL (4.00-5.40); WHITE BLOOD COUNT 12.3 10^3/uL (4.0-10.0)
[2017-10-31 16:00] LABS: ALBUMIN/GLOBULIN RATIO 0.67 (1.00-1.93); ALKALINE PHOSPHATASE 103 U/L (45-117); ALT/SGPT 13 U/L (12-78); ANION GAP 11 MEQ/L (8-16); AST/SGOT 9 U/L (7-37); BILIRUBIN,TOTAL 0.2 MG/DL (0.2-1.0); BLOOD UREA NITROGEN 50 MG/DL (7-18); CARBON DIOXIDE LEVEL 28 MEQ/L (21-32); CHLORIDE LEVEL 102 MEQ/L (98-107); GLOMERULAR FILTRATION RATE 20.2 (>32); GLUCOSE, FASTING 117 MG/DL (70-100); MAGNESIUM LEVEL 1.9 MG/DL (1.8-2.4); POTASSIUM SERUM 4.3 MEQ/L (3.5-5.1); SODIUM LEVEL 141 MEQ/L (136-145); TOTAL PROTEIN 7.5 GM/DL (6.4-8.2)
== END ==
LOC: M LAB REF 15:18
DX: N17.8 Other acute kidney failure (principal)
CPT/HCPCS: 83735